=== PATIENT | female | born 1955 | race Caucasian/White ===

== ENCOUNTER → 2016-08-14 | Outpatient (CLI) | payer BC ==
[~2016-08-14] VITALS: Ht 170.2 cm; Wt 79.5 kg
[~2016-08-14] MED LIST: CIPR500T2 PO; DICY10CA12 PO; DO NOT ADM ANY ANTICOAGULANT DRUGS XX PRN; INSULIN HUMAN REGULAR 1,000 UNITS/10 ML VIAL SQ PRN; LACTATED RINGER'S 1000 ML IV SCH; LEVO125T4 PO; LEVOFLOXACIN/DEXTROSE 500 MG/100 ML IVPB IV ONE; METOPROLOL TARTRATE 25 MG TAB PO PRN; MIDAZOLAM HCL 2 MG/2 ML VIAL ONE; NADO40TA PO; ONDANSETRON HCL 4 MG/2 ML VIAL IV PUSH ONE; PROPOFOL 200 MG/20 ML AMP IV ONE; SODIUM CHLORID 0.9% 500 ML IV SCH; SPIR50TA PO; ePHEDrine/NS 25 MG/5 ML SYR IV ONE
[2016-08-14 09:00] VITALS: BP 108/66; PULSE 59; RESP 20; TEMP 98.3; O2SAT 97
--- NOTE | 2016-08-14 11:38 | GIPROC ---
[facility] [address] [facility]. [facility], [id number] EGD PROCEDURE REPORT EXAM DATE: 08/14/2016 PATIENT NAME: Leonor Loo MR #: [id number] BIRTHDATE: 1955 ATTENDING: Noni Hernandez MD ORDER #: [id number] MANAGER SOUND: Tyler Campos and Evangelist Floyd STATUS: outpatient INDICATIONS: The patient is a 61 yr old female here for an EGD due to cirrhosis esophageal varices PROCEDURE PERFORMED: EGD w/ biopsy EGD w/ band ligation of varices MEDICATIONS: Per Anesthesia and None. TOPICAL ANESTHETIC: none CONSENT: The patient understands the risks and benefits of the procedure and understands that these risks include, but are not limited to: sedation, allergic reaction, infection, perforation and/or bleeding. Alternative means of evaluation and treatment include, among others: physical exam, x-rays, and/or surgical intervention. The patient elects to proceed with this endoscopic procedure. medical equipment was checked for proper function. Hand hygiene and appropriate measures for infection prevention was taken. After the risks, benefits and alternatives of the procedure were thoroughly explained, Informed consent was verified, confirmed and timeout was successfully executed by the treatment team. The patient was anesthetized with topical anesthesia and the Pentax EG-[id number] and [id number] endoscope was introduced through the mouth and advanced to the second portion of the duodenum. Retroflexed views revealed a hiatal hernia The gastroscope was then slowly withdrawn and removed. Esophageal varices grade 3-3 columns-s/p banding -4 bands applied prominent ampulla -biopsy portal gastropathy gastric varices gastric body polyps-patient had recent egd. ADVERSE EVENTS: There were no complications. IMPRESSIONS: 1. Esophageal varices grade 3-3 columns-s/p banding -4 bands applied prominent ampulla -biopsy portal gastropathy gastric varices gastric body polyps-patient had recent egd 2. Retroflexed views revealed a hiatal hernia RECOMMENDATIONS: 1. Await biopsy results. Biopsy results will not be ready for 7-10 days. If you don't hear from us in two weeks, call our office for biopsy results. 2. Anti-reflux regimen 3. Continue PPI 4. Soft diet cbc, cmp, pt/inr, ammonia , alfafetoprotein mrcp -to further evalute prominent ampulla PATIENT CONDITION: stable DISPOSITION: Home REPEAT EXAM: EGD pending biopsy results egd with banding in 6-8 weeks Noni Hernandez MD eSigned: Noni Hernandez MD 08/14/2016 11:38 AM cc: Tim Strauss M.D. PATIENT NAME: Leonor Loo MR#: [id number]
[2016-08-14 12:00] VITALS: BP 108/62; PULSE 65; RESP 12; O2SAT 99
[2016-08-14 12:20] LABS: AUTOMATED NEUTROPHIL # 1.3 TH/MM3 (1.8-7.7); BASOPHIL % 0.8 % (0.0-2.0); EOSINOPHIL # 0.1 TH/MM3 (0-0.4); EOSINOPHIL % 2.8 % (0.0-4.0); HEMATOCRIT 26.4 % (35.0-46.0); LYMPH % 34.8 % (9.0-44.0); LYMPHOCYTE # 0.9 TH/MM3 (1.0-4.8); MEAN CELL VOLUME 83.9 FL (80.0-100.0); MEAN CORPUSCULAR HEMOGLOBIN 28.9 PG (27.0-34.0); MEAN CORPUSCULAR HGB CONC 34.5 % (32.0-36.0); MONO % 12.2 % (0.0-8.0); NEUT % 49.4 % (16.0-70.0); PLATELET COUNT 83 TH/MM3 (150-450); RED BLOOD COUNT 3.15 MIL/MM3 (4.00-5.30); RED CELL DISTRIBUTION WIDTH 17.2 % (11.6-17.2); WHITE BLOOD COUNT 2.7 TH/MM3 (4.0-11.0)
[2016-08-14 12:22] LABS: HEMO FLAGS AUTO DIFF
[2016-08-14 12:27] LABS: INTERNATIONAL NORMALIZED RATIO 1.2 RATIO; PROTHROMBIN TIME - PATIENT 13.6 SEC (9.8-11.6)
[2016-08-14 12:33] LABS: ALKALINE PHOSPHATASE 73 U/L (45-117); ALT (GPT) 28 U/L (10-53); ANION GAP 5 MEQ/L (5-15); AST (GOT) 44 U/L (15-37); BICARBONATE 24.6 MEQ/L (21.0-32.0); BLOOD UREA NITROGEN 9 MG/DL (7-18); CHLORIDE 108 MEQ/L (98-107); GLOMERULAR FILTRATION RATE 107 ML/MIN (>89); POTASSIUM 4.2 MEQ/L (3.5-5.1); SODIUM (NA) 138 MEQ/L (136-145)
[2016-08-14 13:11] LABS: PLATELET ESTIMATE SMEAR LOW (NORMAL); PLATELET MORPHOLOGY NORMAL (NORMAL); SCAN/DIFF AUTO DIFF CONFIRMED
--- NOTE | 2016-08-14 14:47 | EKG ---
Date Performed: 08/14/2016 Time Performed: 08:46:16 PTAGE: 61 years EKG: Sinus rhythm NORMAL ECG NO PREVIOUS TRACING DOCTOR: Guy Samuel Interpretating Date/Time 08/14/2016 14:41:45
== END ==
LOC: HEND 08:17
PROVIDERS: ATTEND Internal Medicine Gastroenterology
DX: I85.00 Esophageal varices without bleeding (principal); K44.9 Diaphragmatic hernia without obstruction or gangrene; K76.6 Portal hypertension; K31.89 Other diseases of stomach and duodenum; K74.60 Unspecified cirrhosis of liver; K22.8 Other specified diseases of esophagus; Z01.810 Encounter for preprocedural cardiovascular examination
CPT/HCPCS: 00740; 43239; 43244; 80053; 82105; 85025; 85610; 88305; 93005; J1956; J2250; J2405; J3010